=== PATIENT | female | born 1970 | race Caucasian/White ===

== ENCOUNTER 2016-09-20 12:08 | Emergency (ER) | payer MEDICAID ==
[2016-09-20] MEDS ORDERED: ACETAMINOPHEN 325 MG TAB PO ONE (12:29)
--- NOTE | 2016-09-20 12:41 | Emergency Department Record ---
History of Present Illness - General Chief Complaint: Fall Injury Stated Complaint: FALL Time Seen by Provider: 09/20/16 12:38 Source: Patient Mode of Arrival: EMS Limitations: No limitations - History of Present Illness Initial Comments: The patient is here from the [facility] home due to a fall. She was standing and lost her balance and fell backwards and landed on her buttocks. She did not hit her head or suffer a LOC and the fall was witnessed. After she did complain of L shoulder pain. She states she has a hx of a previous stroke and does loose her balance at times. She denies any CP, SOB, PAYTON, neck pain or any other injury. MD Complaint: Fall Onset/Timin -: Minutes(s) Fall From: Standing When Fall Occurred: Just prior to arrival Fall Witnessed: Yes, by bystander, Yes, by living facility staff Place Fall Occurred: Home Loss of Consciousness: None Prolonged Down Time?: No Symptoms Prior to Fall: None Severity: Moderate Severity scale (1-10): 8 Quality: Aching Associated Symptoms: Denies - Leeann Coma Scale Eye Response: (4) Open spontaneously Motor Response: (6) Obeys commands Verbal Response: (5) Oriented Leeann Total: 15 - Related Data Home Medications Medication Instructions Recorded Confirmed Last Taken Cholecalciferol (Vitamin D3) 5,000 unit PO WEEKLY 09/20/16 09/20/16 Unknown [Vitamin D3] Cyanocobalamin (Vitamin B-12) 1,000 mcg PO DAILY 09/20/16 09/20/16 Unknown [Vitamin B-12] Furosemide 40 mg PO DAILY 09/20/16 09/20/16 Unknown Gabapentin [Neurontin] 300 mg PO BID 09/20/16 09/20/16 Unknown Gabapentin [Neurontin] 600 mg PO TID 09/20/16 09/20/16 Unknown Hydrochlorothiazide 25 mg PO DAILY 09/20/16 09/20/16 Unknown Levetiracetam 500 mg PO BID 09/20/16 09/20/16 Unknown Levothyroxine Sodium [Synthroid] 50 mcg PO DAILY 09/20/16 09/20/16 Unknown Loxapine Succinate [Loxapine] 50 mg PO QHS 09/20/16 09/20/16 Unknown Omeprazole 20 mg PO DAILY 09/20/16 09/20/16 Unknown Paliperidone Palmitate [Invega 234 mg IM DAILY 09/20/16 09/20/16 Unknown Sustenna] Paliperidone [Paliperidone ER] 3 mg PO DAILY 09/20/16 09/20/16 Unknown Paliperidone [Paliperidone ER] 6 mg PO QHS 09/20/16 09/20/16 Unknown Potassium Chloride 10 meq PO DAILY 09/20/16 09/20/16 Unknown Topiramate [Topamax] 100 mg PO BID 09/20/16 09/20/16 Unknown Ziprasidone HCl [Geodon] 40 mg PO BID 09/20/16 09/20/16 Unknown Zolpidem Tartrate 10 mg PO QHS 09/20/16 09/20/16 Unknown Allergies Allergy/AdvReac Type Severity Reaction Status Date / Time codeine Allergy PT UNSURE Verified 09/20/16 12:27 OF REACTION Travel Screening - Travel/Exposure Within Last 30 Days Have you traveled within the last 30 days?: No Review of Systems Constitutional: Denies: Chills, Fever Eyes: Denies: Eye discharge ENT: Denies: Congestion Respiratory: Denies: Cough, Dyspnea Past Medical History - SOCIAL HISTORY Smoking Status: Current every day smoker Alcohol Use: None Drug Use: None - RESPIRATORY Hx Respiratory Disorders: No - CARDIOVASCULAR Hx Cardio Disorders: Yes Hx Hypertension: Yes - NEURO Hx Neuro Disorders: Yes Hx Seizures: Yes Comment:: TBI - GI Hx GI Disorders: Yes Hx Reflux: Yes - Hx Genitourinary Disorders: No - ENDOCRINE Hx Endocrine Disorders: No - MUSCULOSKELETAL Hx Musculoskeletal Disorders: No - PSYCH Hx Psych Problems: Yes Comment:: Bipolar - HEMATOLOGY/ONCOLOGY Hx Hematology/Oncology Disorders: No Family Medical History Any Significant Family History?: No Physical Exam - General General Appearance: Alert, Cooperative, No acute distress - Head Head exam: Atraumatic, Normocephalic, Normal inspection - Eye Eye exam: Normal appearance, PERRL Pupils: Normal accommodation - Neck Neck exam: Normal inspection, Full ROM. negative: Tenderness - Respiratory Respiratory exam: Normal lung sounds bilaterally. negative: Respiratory distress - Cardiovascular Cardiovascular Exam: Regular rate, Normal rhythm, Normal heart sounds - GI/Abdominal GI/Abdominal exam: Soft, Normal bowel sounds. negative: Tenderness - Extremities Extremities exam: Normal inspection, Full ROM (There is normal ROM for the patient taking into account the chronic L sided weakness from the CVA.), Tenderness (There is mild L anterior shoulder tenderness. ) Course Vital Signs 09/20/16 12:18 Temperature 97.5 F L Pulse Rate 84 Respiratory 20 Rate Blood Pressure 110/54 Pulse Ox 99 - Reevaluation(s) Reevaluation #1: The patient is doing better. She is now using her L arm normally and denies any pain or discomfort. Her main issue now is that she would like to go outside to smoke. I did explain to her that her xrays are neg and that she should use her walker at home. 09/20/16 13:01 Medical Decision Making - Data Complexity MDM Data: X-Ray Ordered and/or Reviewed - Radiology Data Radiology results: Report reviewed (L shoulder: Neg per rad.) Disposition Disposition: Discharge Clinical Impression: Shoulder pain, left Qualifiers: Chronicity: acute Qualified Code(s): M25.512 - Pain in left shoulder Disposition: Home, Self-Care Condition: (1) Good Instructions: Shoulder Sprain (ED) Additional Instructions: Please use Tylenol for pain and use your walker at all times. Please see your PCP if not better in 3 days. Return to the ER for any problems or new issues. Forms: Patient Portal Access Time of Disposition: 13:04
--- NOTE | 2016-09-21 10:08 | RADIOLOGY REPORT ---
EXAM: LEFT SHOULDER, THREE VIEWS HISTORY: FALL, LEFT SHOULDER PAIN. TECHNIQUE: Three views of the left shoulder were obtained. Comparison: None. FINDINGS: No bone or joint abnormality. IMPRESSION: NEGATIVE LEFT SHOULDER EXAMINATION. JOB NUMBER: [id number] [facility]
== END 2016-09-20 13:10 | disposition home or self-care (01) ==
LOC: ER 12:08
DX: G89.11 Acute pain due to trauma (principal); M25.512 Pain in left shoulder; W18.30XA Fall on same level, unspecified, initial encounter; Y92.099 Unspecified place in other non-institutional residence as the place of occurrence of the external cause
CPT/HCPCS: 99283

== ENCOUNTER 2016-10-05 16:43 | Inpatient (IN) | payer MEDICAID ==
--- NOTE | 2016-10-05 17:41 | Emergency Department Record ---
History of Present Illness - General Mode of Arrival: Ambulatory - History of Present Illness Initial Comments: fall two days ago and she is complaining of a headache and her caregiver states she is moving slower than she did 3 weeks ago the last time she saw her. 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 No chest or abdominal pain or leg pains with walking. Lives at [facility] home. No blood thinners on med list MD Complaint: Fall Onset/Timin -: Days(s) Fall From: Other When Fall Occurred: # Days [employer] [facility] Fall Occurred: Home Loss of Consciousness: Unsure Prolonged Down Time?: Unclear Symptoms Prior to Fall: Other Location: Head - Leeann Coma Scale Eye Response: (4) Open spontaneously Motor Response: (6) Obeys commands Verbal Response: (5) Oriented Leeann Total: 15 <Jose Eubanks - Last Filed: 10/05/16 17:36> <Sid Bernardo - Last Filed: 10/05/16 21:00> - General Chief Complaint: Fall Injury Stated Complaint: FALL INJURY/HEAD Time Seen by Provider: 10/05/16 17:30 - Related Data Home Medications Medication Instructions Recorded Confirmed Last Taken Cholecalciferol (Vitamin D3) 5,000 unit PO WEEKLY 09/20/16 10/05/16 10/05/16 [Vitamin D3] Cyanocobalamin (Vitamin B-12) 1,000 mcg PO DAILY 09/20/16 10/05/16 10/05/16 [Vitamin B-12] Furosemide 40 mg PO DAILY 09/20/16 10/05/16 10/05/16 Hydrochlorothiazide 25 mg PO DAILY 09/20/16 10/05/16 10/05/16 Levetiracetam 500 mg PO BID 09/20/16 10/05/16 10/05/16 Levothyroxine Sodium [Synthroid] 50 mcg PO DAILY 09/20/16 10/05/16 10/05/16 Omeprazole 20 mg PO DAILY 09/20/16 10/05/16 10/05/16 Paliperidone [Paliperidone ER] 3 mg PO DAILY 09/20/16 10/05/16 10/05/16 Paliperidone [Paliperidone ER] 6 mg PO QHS 09/20/16 10/05/1610/04/17 Potassium Chloride 10 meq PO DAILY 09/20/16 10/05/16 10/05/16 Topiramate [Topamax] 100 mg PO BID 09/20/16 10/05/16 10/05/16 Zolpidem Tartrate 10 mg PO QHS 09/20/16 10/05/16 10/04/16 Allergies Allergy/AdvReac Type Severity Reaction Status Date / Time codeine Allergy PT UNSURE Verified 09/20/16 12:27 OF REACTION Travel Screening - Travel/Exposure Within Last 30 Days Have you traveled within the last 30 days?: No - Travel/Exposure Within Last Year Have you traveled outside the [place] in the last year?: No - Additonal Travel Details Have you been exposed to anyone with a communicable illness?: No - Travel Symptoms Symptom Screening: None <Jose Eubanks - Last Filed: 10/05/16 17:36> Review of Systems Reviewed: No additional complaints except as noted below Constitutional: Reports: As per HPI. Denies: Chills, Fever, Malaise, Night sweats, Weakness, Weight change Eyes: Reports: As per HPI. Denies: Eye discharge, Eye pain, Photophobia, Vision change ENT: Reports: As per HPI. Denies: Congestion, Dental pain, Ear pain, Epistaxis , Hearing loss, Throat pain Respiratory: Reports: As per HPI. Denies: Cough, Dyspnea, Hemoptysis, Stridor, Wheezes Cardiovascular: Reports: As per HPI. Denies: Arrhythmia, Chest pain, Dyspnea on exertion, Edema, Murmurs, Orthopnea, Palpitations, Paroxysmal nocturnal dyspnea, Rheumatic Fever, Syncope Endocrine: Reports: As per HPI. Denies: Fatigue, Heat or cold intolerance, Polydipsia, Polyuria Gastrointestinal: Reports: As per HPI. Denies: Abdominal pain, Constipation, Diarrhea, Hematemesis, Hematochezia, Melena, Nausea, Vomiting Genitourinary: Reports: As per HPI. Denies: Abnormal menses, Discharge, Dyspareunia, Dysuria, Frequency, Hematuria, Incontinence, Retention, Urgency Musculoskeletal: Reports: As per HPI. Denies: Arthralgia, Back pain, Gout, Joint swelling, Myalgia, Neck pain Skin: Reports: As per HPI. Denies: Bruising, Change in color, Change in hair/ nails, Lesions, Pruritus, Rash Neurological: Reports: As per HPI, Headache. Denies: Abnormal gait, Confusion, Numbness, Paresthesias, Seizure, Tingling, Tremors, Vertigo, Weakness Psychiatric: Reports: As per HPI. Denies: Anxiety, Auditory hallucinations, Depression, Homicidal thoughts, Suicidal thoughts, Visual hallucinations Hematological/Lymphatic: Reports: As per HPI. Denies: Anemia, Blood Clots, Easy bleeding, Easy bruising, Swollen glands <Jose Eubanks Last Filed: 10/05/16 17:36> Past Medical History - SOCIAL HISTORY Smoking Status: Current every day smoker Alcohol Use: None Drug Use: None - RESPIRATORY Hx Respiratory Disorders: No - CARDIOVASCULAR Hx Cardio Disorders: Yes Hx Hypertension: Yes - NEURO Hx Neuro Disorders: Yes Hx CVA: Yes (2013) Hx Seizures: Yes Comment:: TBI - GI Hx GI Disorders: Yes Hx Reflux: Yes - Hx Genitourinary Disorders: No - ENDOCRINE Hx Endocrine Disorders: No - MUSCULOSKELETAL Hx Musculoskeletal Disorders: No - PSYCH Hx Psych Problems: Yes Hx Anxiety: Yes Hx Depression: Yes Comment:: Bipolar - HEMATOLOGY/ONCOLOGY Hx Hematology/Oncology Disorders: No <Jose Eubanks Last Filed: 10/05/16 17:36> Family Medical History Any Significant Family History?: No <Jose Eubanks Filed: 10/05/16 17:36> Physical Exam - General General Appearance: Alert, Cooperative, Mild distress - Head Head exam: Normal inspection - Eye Eye exam: Normal appearance, PERRL, EOMI Pupils: Normal accommodation - ENT ENT exam: Normal exam, Mucous membranes moist, Normal external ear exam, Normal orophraynx, TM's normal bilaterally Ear exam: Normal external inspection. negative: External canal tenderness Nasal Exam: Normal inspection. negative: Discharge, Sinus tenderness Mouth exam: Normal external inspection, Tongue normal Teeth exam: Normal inspection. negative: Dental caries Throat exam: Normal inspection. negative: Tonsillar erythema, Tonsillar exudate - Neck Neck exam: Normal inspection, Tenderness - Respiratory Respiratory exam: Normal lung sounds bilaterally. negative: Respiratory distress - Cardiovascular Cardiovascular Exam: Regular rate, Normal rhythm, Normal heart sounds - GI/Abdominal GI/Abdominal exam: Soft, Normal bowel sounds. negative: Tenderness - Rectal Rectal exam: Deferred - exam: Deferred - Extremities Extremities exam: Normal inspection, Full ROM, Normal capillary refill. negative: Tenderness - Back Back exam: Reports: Normal inspection, Full ROM. Denies: Muscle spasm, Rash noted, Tenderness - Neurological Neurological exam: Abnormal gait (walks with a walker), Alert, Reflexes normal, Other (left hand is paralysed with contractures of fingers) - Psychiatric Psychiatric exam: Normal affect, Normal mood - Skin Skin exam: Dry, Intact, Normal color, Warm <Jose Eubanks - Last Filed: 10/05/16 17:36> Course Vital Signs 10/05/16 17:00 Temperature 97.6 F Pulse Rate [ 61 Pulse Ox Probe] Respiratory 16 Rate Blood Pressure 99/61 [Right Arm] Pulse Ox 95 - Reevaluation(s) Reevaluation #1: care over to Dr. Bernardo at 7pmpatient going to CT scan. IV was difficult to start and blood drawn. 10/05/16 18:44 <Jose Eubanks - Last Filed: 10/05/16 17:36> Vital Signs 10/05/16 10/05/16 10/05/16 17:00 19:11 19:28 Temperature 97.6 F Pulse Rate [ 61 76 66 Pulse Ox Probe] Respiratory 16 16 16 Rate Blood Pressure 99/61 90/66 101/66 [Right Arm] Pulse Ox 95 95 100 - Reevaluation(s) Reevaluation #2: The patient is resting comfortably at this time. She denies any new issues or problems. We are waiting on the results of her CT and lab work. 10/05/16 19:40 Reevaluation #3: The patient is resting comfortably. I did discuss the issues with the patient and caregiver relating to her electrolyte problems and did recommend hospital admission which they agreed to. I also did discuss the case with Ammy CONCEPCION) and she does accept the admission for Dr. Long. 10/05/16 20:58 <Sid Bernardo - Last Filed: 10/05/16 21:00> Medical Decision Making - Lab Data Result diagrams: 10/05/16 18:21 10/05/16 18:30 <Jose Eubanks - Last Filed: 10/05/16 17:36> - Data Complexity MDM Data: Labs Ordered and/or Reviewed, X-Ray Ordered and/or Reviewed - Lab Data Result diagrams: 10/05/16 18:21 10/05/16 18:30 Lab Results 10/05/16 10/05/16 10/05/16 Range/Units 18:21 18:30 19:00 WBC 11.1 (4.2-12.2) K/uL RBC 4.95 (3.80-5.40) M/uL Hgb 14.3 (11.6-16.0) gm/dl Hct 40.2 (35.0-47.0) % MCV 81.2 (81-97) fl MCH 28.9 (27-33) pg MCHC 35.6 (32-36) g/dl RDW 14.7 H (11.5-14.5) % Plt Count 250 (130-400) K/uL MPV 10.4 (7.4-10.4) fl Gran % 75.9 (47-80) % Lymphocytes % 18.3 (16-45) % Monocytes % 5.7 (0-9) % Eosinophils % 0.0 (0-6) % Basophils % 0.1 (0-6) % PT 11.2 (9.5-12.1) SECONDS INR 0.99 APTT 23.70 L (24.5-39.1) SECONDS Urine Color Yellow Urine Appearance Clear Urine pH 7.0 (5.0-8.0) Ur Specific [place] 1.010 (1.002-1.030) Urine Protein Negative (NEGATIVE) Urine Glucose (UA) Negative (NEGATIVE) Urine Ketones Negative (NEGATIVE) Urine Blood Trace-i (NEGATIVE) Urine Nitrite Negative (NEGATIVE) Urine Bilirubin Negative (NEGATIVE) Urine Urobilinogen 0.2 (0.20 - 1.00) E.U./dL Ur Leukocyte Esterase Trace H (NEGATIVE) Urine RBC 0 - 2 (NONE SEEN) Urine WBC 0 - 2 (0-2/hpf) Ur Epithelial Cells 3 - 6 (FEW) Urine Bacteria None seen - Radiology Data Radiology results: Report reviewed (Head CT: No acute changes. Cervical Spine : No fx or dislocation. L supraclavicular nodes. Etiology ?) <Sid Bernardo - Last Filed: 10/05/16 21:00> Disposition <Jose Eubanks - Last Filed: 10/05/16 17:36> Disposition: Admit Decision to Admit: Admit from ER Decision to Admit Date: 10/05/16 Decision to Admit Time: 21:00 Accepting Physician: Mercedes Time Discussed w/Accepting Physician: 21:00 Time of Disposition: 21:00 <Sid Bernardo - Last Filed: 10/05/16 21:00> Clinical Impression: Hyponatremia syndrome Disposition: Still a Patient at [facility] Condition: (2) Stable Forms: Patient Portal Access
[2016-10-05] MEDS ORDERED: 0.9 % SODIUM CHLORIDE 1000ML 1,000 ML IV ONE (17:46)
[2016-10-05 18:22] LABS: BASO % 0.1 % (0-6); GRAN % 75.9 % (47-80); HEMATOCRIT 40.2 % (35.0-47.0); HEMOGLOBIN 14.3 gm/dl (11.6-16.0); LYMPH % 18.3 % (16-45); MEAN CELL VOLUME 81.2 fl (81-97); MEAN CORPUSCULAR HEMOGLOBIN 28.9 pg (27-33); MEAN CORPUSCULAR HGB CONC 35.6 g/dl (32-36); MEAN PLATELET VOLUME 10.4 fl (7.4-10.4); MONO % 5.7 % (0-9); PLATELET COUNT 250 K/uL (130-400); RED BLOOD COUNT 4.95 M/uL (3.80-5.40); RED CELL DISTRIBUTION WIDTH 14.7 % (11.5-14.5); WHITE BLOOD COUNT W/O DIFF 11.1 K/uL (4.2-12.2)
[2016-10-05 18:50] LABS: INR 0.99; PARTIAL THROMBOPLASTIN TIME 23.7 SECONDS (24.5-39.1); PROTHROMBIN TIME (PATIENT) 11.2 SECONDS (9.5-12.1)
[2016-10-05 19:08] LABS: URINE APPEARANCE CLEAR; URINE BILIRUBIN NEGATIVE (NEGATIVE); URINE BLOOD TRACE-I (NEGATIVE); URINE COLOR YELLOW; URINE GLUCOSE (UA) NEGATIVE (NEGATIVE); URINE KETONE NEGATIVE (NEGATIVE); URINE LEUKOCYTE ESTERASE TRACE (NEGATIVE); URINE NITRITE NEGATIVE (NEGATIVE); URINE PROTEIN NEGATIVE (NEGATIVE); URINE UROBILINOGEN 0.2 E.U./dL (0.20 - 1.00)
[2016-10-05 19:18] LABS: URINE BACTERIA NONE SEEN; URINE RBC 0 - 2 (NONE SEEN); URINE WBC 0 - 2 (0-2/hpf)
[2016-10-05 20:36] LABS: BLOOD UREA NITROGEN 46 mg/dL (7-17); EST GLOMERULAR FILTRATION RATE > 60 ml/min; GLUCOSE,RANDOM 145 mg/dL (70-110)
[2016-10-05 20:37] LABS: ACETAMINOPHEN < 10.0 ug/mL (10.0-30.0); SALICYLATE < 1.0 mg/dL (2.8-20.0)
[2016-10-05] MEDS ORDERED: POTASSIUM CHLORIDE 20 MEQ TABLET PO ONE ×2 (20:43→23:00)
[2016-10-05] MEDS ORDERED: SOD CHLOR 0.9% WITH KCL 40MEQ 40 MEQ/1,000 ML IV.SOLN IV ONE (20:43)
[2016-10-05] MEDS ORDERED: ACETAMINOPHEN 500 MG TABLET PO PRN (21:00)
[2016-10-05] MEDS ORDERED: 0.9 % SODIUM CHLORIDE 1000ML 1,000 ML IV PRN (21:00)
[2016-10-05] MEDS ORDERED: PALIPERIDONE 6 MG PO SCH (22:00)
[2016-10-05] MEDS ORDERED: Non-Formulary MISC (Zolpidem Tartrate [Zolpidem Tartrate] 10 MG) PO SCH (22:00)
[2016-10-05] MEDS: SOD CHLOR 0.9% WITH KCL 40MEQ 40 MEQ/1,000 ML IV.SOLN IV SCH (23:08)
[2016-10-05] MEDS: LEVETIRACETAM 500 MG TABLET PO SCH (23:08)
[2016-10-05] MEDS: TOPIRAMATE 100MG TABLET PO SCH (23:08)
[2016-10-05] MEDS: ZOLPIDEM TARTRATE 5 MG TABLET PO SCH (23:09)
[2016-10-06] MEDS ORDERED: LEVOTHYROXINE SODIUM 50 MCG TABLET PO SCH (06:00)
[2016-10-06] MEDS: PANTOPRAZOLE SODIUM 40 MG TABLET PO SCH (06:34)
[2016-10-06 06:48] LABS: BASO % 0.1 % (0-6); EOS % 0.4 % (0-6); GRAN % 61.9 % (47-80); HEMATOCRIT 36.1 % (35.0-47.0); HEMOGLOBIN 12.4 gm/dl (11.6-16.0); LYMPH % 30.5 % (16-45); MEAN CELL VOLUME 83.2 fl (81-97); MEAN CORPUSCULAR HEMOGLOBIN 28.6 pg (27-33); MEAN CORPUSCULAR HGB CONC 34.3 g/dl (32-36); MONO % 7.1 % (0-9); PLATELET COUNT 224 K/uL (130-400); RED BLOOD COUNT 4.34 M/uL (3.80-5.40); RED CELL DISTRIBUTION WIDTH 14.5 % (11.5-14.5); WHITE BLOOD COUNT W/O DIFF 7.1 K/uL (4.2-12.2)
--- NOTE | 2016-10-06 06:50 | History & Physical ---
History of Present Illness - Date of Service Date of Service for History & Physical: 10/06/16 - History of Present Illness Admitting Diagnosis: 1. Acute Hyponatremia and Hypokalemia History of Present Illness: 46yo female with CC of headache. She has history of CVA in 2013 with residual Left sided weakness and contracture of the left upper extremity, TBI, schizoaffective disorder, HTN, GERD, and is a current smoker. Patient was brought from [facility], which is an [facility], after falling two days ago. She complained of headache and it was noted she was moving more slowly than usual so she was brought to the ED. While in the ED, patient had CT scan of the Cspine and head which were negative for acute fracture or changes. noted to have some enlarged supraclavicular nodes of uncertain etiology on cspine. UA showed trace leuk esterase, CBC, PT/ INR, and tox screen for salicylates and acetaminophen were unremarkable. Her CMP however, showed significant electrolyte abnormalities. sodium was 119, potassium was 2.4, chloride of 70, and bicarb of 38. BUN was elevated at 46 with a normal Cr of 1.0. Patient received oral potassium supplementation and was started on IV NS. her Lasix and HCTZ were held and she was admitted for electrolyte abnormalities. 10/06/16- patient is poor historian. She is oriented to person but not to place or time. unfortunately, there are no caretakers or family at bedside. Patient is able to verbalize that she has some pain in the back of head from the fall, but does not answer any of my other questions. PCP: previously with visiting physicians and now transferring to [facility] psychiatry follows with patient Travel Screening - Travel/Exposure Within Last 30 Days Have you traveled within the last 30 days?: No - Travel/Exposure Within Last Year Have you traveled outside the [place] in the last year?: No - Additonal Travel Details Have you been exposed to anyone with a communicable illness?: No - Travel Symptoms Symptom Screening: None Review of Systems ROS unobtainable: Due to mental status Constitutional: Reports: As per HPI. Denies: Chills, Fever, Malaise, Night sweats, Weakness, Weight change Eyes: Reports: As per HPI. Denies: Eye discharge, Eye pain, Photophobia, Vision change ENT: Reports: As per HPI. Denies: Congestion, Dental pain, Ear pain, Epistaxis , Hearing loss, Throat pain Respiratory: Reports: As per HPI. Denies: Cough, Dyspnea, Hemoptysis, Stridor, Wheezes Cardiovascular: Reports: As per HPI. Denies: Arrhythmia, Chest pain, Dyspnea on exertion, Edema, Murmurs, Orthopnea, Palpitations, Paroxysmal nocturnal dyspnea, Rheumatic Fever, Syncope Endocrine: Reports: As per HPI. Denies: Fatigue, Heat or cold intolerance, Polydipsia, Polyuria Gastrointestinal: Reports: As per HPI. Denies: Abdominal pain, Constipation, Diarrhea, Hematemesis, Hematochezia, Melena, Nausea, Vomiting Genitourinary: Reports: As per HPI. Denies: Abnormal menses, Discharge, Dyspareunia, Dysuria, Frequency, Hematuria, Incontinence, Retention, Urgency Musculoskeletal: Reports: As per HPI. Denies: Arthralgia, Back pain, Gout, Joint swelling, Myalgia, Neck pain Skin: Reports: As per HPI. Denies: Bruising, Change in color, Change in hair/ nails, Lesions, Pruritus, Rash Neurological: Reports: As per HPI, Headache. Denies: Abnormal gait, Confusion, Numbness, Paresthesias, Seizure, Tingling, Tremors, Vertigo, Weakness Psychiatric: Reports: As per HPI. Denies: Anxiety, Auditory hallucinations, Depression, Homicidal thoughts, Suicidal thoughts, Visual hallucinations Hematological/Lymphatic: Reports: As per HPI. Denies: Anemia, Blood Clots, Easy bleeding, Easy bruising, Swollen glands Past Medical History - SOCIAL HISTORY Smoking Status: Current every day smoker Alcohol Use: None Drug Use: None - RESPIRATORY Hx Respiratory Disorders: No - CARDIOVASCULAR Hx Cardio Disorders: Yes Hx Hypertension: Yes - NEURO Hx Neuro Disorders: Yes Hx CVA: Yes (2013) Hx Seizures: Yes Comment:: TBI - GI Hx GI Disorders: Yes Hx Reflux: Yes - Hx Genitourinary Disorders: No - ENDOCRINE Hx Endocrine Disorders: No - MUSCULOSKELETAL Hx Musculoskeletal Disorders: No - PSYCH Hx Psych Problems: Yes Hx Anxiety: Yes Hx Depression: Yes Comment:: Bipolar - HEMATOLOGY/ONCOLOGY Hx Hematology/Oncology Disorders: No Family Medical History Any Significant Family History?: No H&P Meds/Allergies - Allergies Allergies: Allergies Allergy/AdvReac Type Severity Reaction Status Date / Time codeine Allergy PT UNSURE Verified 09/20/16 12:27 OF REACTION - Home Medications Home Medications Medication Instructions Recorded Confirmed Last Taken Cholecalciferol (Vitamin D3) 5,000 unit PO WEEKLY 09/20/16 10/05/16 10/05/16 [Vitamin D3] Cyanocobalamin (Vitamin B-12) 1,000 mcg PO DAILY 09/20/16 10/05/16 10/05/16 [Vitamin B-12] Furosemide 40 mg PO DAILY 09/20/16 10/05/16 10/05/16 Hydrochlorothiazide 25 mg PO DAILY 09/20/16 10/05/16 10/05/16 Levetiracetam 500 mg PO BID 09/20/16 10/05/16 10/05/16 Levothyroxine Sodium [Synthroid] 50 mcg PO DAILY 09/20/16 10/05/16 10/05/16 Omeprazole 20 mg PO DAILY 09/20/16 10/05/16 10/05/16 Paliperidone [Paliperidone ER] 3 mg PO DAILY 09/20/16 10/05/16 10/05/16 Paliperidone [Paliperidone ER] 6 mg PO QHS 09/20/16 10/05/16 10/04/16 Potassium Chloride 10 meq PO DAILY 09/20/16 10/05/16 10/05/16 Topiramate [Topamax] 100 mg PO BID 09/20/16 10/05/16 10/05/16 Zolpidem Tartrate 10 mg PO QHS 09/20/16 10/05/16 10/04/16 - Active Medications Active Medications: Current Medications Acetaminophen (Tylenol 500mg Tab) 500 mg PO Q6H PRN PRN Reason: PAIN/TEMP Sodium Chloride () 1,000 mls @ 100 mls/hr IV .Q10H PRN PRN Reason: LARGE VOLUME IV Potassium Chloride/Sodium Chloride (Potassium Chl 40meq/) 40 meq in 1,000 mls @ 100 mls/hr IV Q10H [facility] Last Admin: 10/05/16 23:08 Dose: Not Given Levetiracetam (Keppra) 500 mg PO BID [facility] Last Admin: 10/05/16 23:08 Dose: 500 mg Levothyroxine Sodium (Synthroid) 50 mcg PO [id number] [facility] Last Admin: 10/06/16 06:34 Dose: 50 mcg Non-Formulary Medication (Paliperidone [Paliperidone Er]) 3 mg PO DAILY [facility] Non-Formulary Medication (Paliperidone [Paliperidone Er]) 6 mg PO QHS [facility] Pantoprazole Sodium (Protonix) 40 mg PO DAILYAC [facility] Last Admin: 10/06/16 06:34 Dose: 40 mg Topiramate (Topiramate) 100 mg PO BID [facility] Last Admin: 10/05/16 23:08 Dose: 100 mg Zolpidem Tartrate (Ambien) 10 mg PO QHS [facility] Last Admin: 10/05/16 23:09 Dose: 10 mg Physical Exam - Vital Signs Vital Signs: Vital Signs - Last 24 Hrs Temp Pulse Resp BP Pulse Ox 10/06/16 02:47 98.3 F 65 14 129/77 98 10/05/16 22:00 97.7 F 65 16 121/73 99 - General General Appearance: Alert, Cooperative, No acute distress Limitations: Altered mental status - Head Head exam: Normal inspection - Eye Eye exam: Normal appearance, PERRL, EOMI Pupils: Normal accommodation - ENT ENT exam: Normal exam, Mucous membranes moist, Normal external ear exam, Normal orophraynx, TM's normal bilaterally Ear exam: Normal external inspection. negative: External canal tenderness Nasal Exam: Normal inspection. negative: Discharge, Sinus tenderness Mouth exam: Normal external inspection, Tongue normal Teeth exam: Normal inspection. negative: Dental caries Throat exam: Normal inspection. negative: Tonsillar erythema, Tonsillar exudate - Neck Neck exam: Normal inspection, Tenderness - Respiratory Respiratory exam: Normal lung sounds bilaterally. negative: Respiratory distress - Cardiovascular Cardiovascular Exam: Regular rate, Normal rhythm, Normal heart sounds - GI/Abdominal GI/Abdominal exam: Soft, Normal bowel sounds. negative: Tenderness - Rectal Rectal exam: Deferred - exam: Deferred - Extremities Extremities exam: Normal inspection, Full ROM, Normal capillary refill. negative: Tenderness - Back Back exam: Reports: Normal inspection, Full ROM. Denies: Muscle spasm, Rash noted, Tenderness - Neurological Neurological exam: Abnormal gait (walks with a walker), Alert, Reflexes normal, Other (left hand is paralysed with contractures of fingers) - Psychiatric Psychiatric exam: Agitated - Skin Skin exam: Dry, Intact, Normal color, Warm Results - Labs Result Diagrams: 10/06/16 06:33 10/06/16 06:33 - Imaging and Cardiology CT scan - head Status: Report reviewed (negative) cspine CT Status: Report reviewed (negative) VTE H&P Assessment - Risk for VTE Risk for VTE: Yes Risk Level: Moderate Risk Assessment Date: 10/06/16 Risk Assessment Time: 06:57 VTE Orders Placed or Will Be Placed: Yes Plan - Inpatient Certification Inpatient Certification: Admit to inpatient care: Based on my medical assessment, after consideration of patient's risk factors (age, co-morbidities and patient presenting symptoms and acuity), I expect that this patient will remain in the hospital greater than or equal to two midnights and that the services needed warrant inpatient care because: Patient Risk Factors: [age, significant electrolyte abnormalities, history of CVA and seizures] Estimated length of stay: [48-72] The patient may reasonably be expected to be discharged or transferred to a hospital within 96 hours after admission to [facility]. Services needed: [IVF with electrolyte rescuscitation] Post hospital care (if known): [[facility]] I certify that my determination is in accordance with my understanding of Medicare requirements for reasonable and necessary inpatient services. 10/06/16 06:57 - Detailed Diagnosis and Plan (1) Electrolyte abnormality Current Visit: Yes Status: Acute Base Code: E87.8 - OTH DISORDERS OF ELECTROLYTE AND FLUID BALANCE, NEC Comment: 10/06/16-improved. Sodium up to 125 from 119. potassium up to 2.9 from 2.4. choride up to 83 from 70. bicarb down from 34 to 31.4. likely secondary to excessive diuretic use with lasix 40mg and HCTZ 25mg daily. Patient recently moved AF and concern there was not appropriate medication reconciliation. -hold diuretics -continue electrolyte replacement with IV NS with 40meq of potassium in each liter at 100cc/hr. -request records from [facility] and previous physician. glucose was elevated and A1C is in the diabetic range. not sure patient has previously been diagnosed with no diabetic agents on board. will orer ADA diet. -vitals q8H -repeat labs qam -continue cardiac monitoring. (2) Frequent falls Current Visit: Yes Status: Acute Base Code: R29.6 - REPEATED FALLS Comment : 10/06/16- Patient experiencing frequent falls over the past few months. currently living in an [facility]. Has residual weakness primarily in the left side following CVA in 2013. Head CT and Cspine showed no acute changes following fall 2 days ago. -hold diuretics and correct electrolyte imbalance -consult PT/OT (3) Full code status Current Visit: Yes Status: Acute Base Code: Z78.9 - OTHER SPECIFIED HEALTH STATUS Comment: 10/06/16- patient is full code (4) DVT prophylaxis Current Visit: Yes Status: Acute Base Code: [id number] - Comment: 10/06/16- patient is moderate risk with age and restricted mobility -will order lovenox 40mg sq daily but suspect patient will refuse -will encourage ambulation wt PT
[2016-10-06 07:03] LABS: ANION GAP 10.6 (7-16); BLOOD UREA NITROGEN 32 mg/dL (7-17); CARBON DIOXIDE 31.4 mmol/L (22-30); EST GLOMERULAR FILTRATION RATE > 60 ml/min; GLUCOSE,RANDOM 236 mg/dL (70-110)
[2016-10-06] MEDS: SOD CHLOR 0.9% WITH KCL 40MEQ 40 MEQ/1,000 ML IV.SOLN IV SCH ×3 (07:19→20:37)
[2016-10-06] MEDS ORDERED: Non-Formulary MISC (Omeprazole [Omeprazole] 20 MG) PO SCH (10:00)
[2016-10-06] MEDS ORDERED: PALIPERIDONE 3 MG PO SCH ×2 (10:00)
[2016-10-06] MEDS: LEVETIRACETAM 500 MG TABLET PO SCH ×2 (10:42→21:04)
[2016-10-06] MEDS: TOPIRAMATE 100MG TABLET PO SCH ×2 (10:43→21:05)
--- NOTE | 2016-10-06 15:11 | Rehab Evaluation ---
Patient Information - Patient Information Diagnosis: Acute hyponatremia and hypokalemia Ordered Treatment: PT Evaluate and Treat Status: Initial Evaluation Surgery: No History: Detail (Pt was admitted from ED after presentation 10/05/16, reporting having fallen at home two days ago, hitting her head; she was reported to be moving and speaking slower than she usually does.) Past Med/Yana Hx Detail: Detail Past Medical/Surgical Hx: PAST MEDICAL/SURGICAL HISTORY Past Surgical History TBI PMH - Respiratory Hx Respiratory Disorders No PMH - Cardiovascular Hx Cardiovascular Disorders Yes Hx Hypertension Yes PMH - Neuro Hx Neurological Disorders Yes Hx Cerebrovascular Accident Yes: 2013 Hx Seizures Yes Comment: TBI PMH - GI Hx Gastrointestinal Disorders Yes Hx Gastroesophageal Reflux Yes PMH - Hx Genitourinary Disorders No PMH - Endocrine Hx Endocrine Disorders No PMH - Musculoskeletal Hx Musculoskeletal Disorders No PMH - Psych Hx Psychiatric Problems Yes Hx Anxiety Yes Hx Depression Yes Comment: Bipolar PMH - Hematology/Oncology Hx Hematology/Oncology No Disorders Premorbid Status: Detail (From records review, pt lives at a long-term for residents w/mental health issues. She is not a good historian, but reports that she was independent w/bathing, dressing, eating, and other self care. She is unable to tell me if she has fallen more than the reported fall two days ago , in the past six months. She ambulates w/four wheeled walker.) Social History: Detail (Unable to ascertain from interaction w/patient.) - Time With Patient Total Time Spent With Patient (Min): 45 Treatment Procedures: Detail (PT evaluation) Subjective Information - Subjective Information Per Patient (Pt reports head pain, "10+/10" at rest; acknowledges that she's been given pain meds and "they're not working". Cooperative for physical therapy evaluation.) Objective Data - Pain Pain Present: Yes Pain Intensity: 10 (head pain) Pain Scale Used: Numeric (1 - 10) - Mental Status Patient Orientation: Person, Place (Pt did not respond to questions of time orientation. She could identify herself and this location.) - Visual Perception Appears within normal limits for therapeutic activities (States vision is blurry ; L eyelid is droopy.) - ROM Not within normal limits (L wrist/finger flexion contractures; patient is able to open adequately to shade classifier walker handle. L ankle plantarflexion contracture of at least 10+ degrees; says "OW" when attempted stretching but unable to localize.) - Strength/Tone Not within normal limits (WNL at B shoulders, elbows, hips, knees; unable to fully test ankles as pt was not cooperative (not sure whether she didn't understand the directions or if she couldn't physically do the motions).) - Coordination Deficit (Impaired movement of L extremities, mostly distally.) - Bed Mobility Independent - Transfers Needs Assist (CGA for sit/stand at bedside; verbalized discomfort standing w/o her walker, requested it and she was able to stand w/it w/o difficulty.) - Balance Balance Sitting: Good Balance Standing: Good (Good balance standing w/four wheeled walker, poor without assist. Pt verbalized discomfort standing without UE support. Unable to fully assess dynamic balance due to patient's cooperation.) - Sensation Deficit (Pt reports numbness/tingling in her feet, but unable to formally assess.) - Gait Detail (Ambulated w/four wheeled walker from bedside, around bed, out of room to hallway, to next patient room and back to bedside (about 50 feet) w/CGA. Stiff gait, short strides, mild forward lean w/walker.) Therapy Assessment - Therapy Assessment Detail (Pt exhibits physical independence with bed mobility and transfers, supervision w/gait, good upper and lower extremity strength. Safety may be somewhat compromised more by psychological issues than physical, from a therapy perspective. Her four wheeled walker is in need of repair to the right front wheel for stability, or replacement. She does not have physical therapy needs at this time.) Problem List - Problem List Physical Therapy Problem List: Detail (None) Goals - Goals Physical Therapy Goals: 1. Ensure that caregiver/facility is aware of need for repair to right front wheel of walker, or replacement if unable to be repaired. Prognosis - Prognosis Moderate Plan - Plan Physical Therapy Plan: Will check in w/patient and nrsg during stay to monitor for any further physical therapy needs.
[2016-10-06] MEDS: ZOLPIDEM TARTRATE 5 MG TABLET PO SCH (21:04)
[2016-10-06] MEDS ORDERED: PALIPERIDONE 6 MG PO SCH (22:00)
[2016-10-06] MEDS ORDERED: LORAZEPAM 2 MG/ML VIAL IV PRN (22:41)
--- NOTE | 2016-10-07 01:02 | CT SCAN REPORT ---
EXAM: CT SCAN HEAD WO CONTRAST HISTORY: PATIENT HAS A HISTORY OF FALL AND HITTING HER HEAD TWO DAYS AGO. TECHNIQUE: Serial axial CT scan of the head was performed at 2.5 mm intervals from the base of the skull to the apex without the use of intravenous contrast. COMPARISON: No comparison CTs are available. Sagittal and coronal reconstructed images are provided. FINDINGS: The ventricles, cisterns, sulci appear within normal limits for size , shape, and attenuation. There is no mass or mass effect. The waters and white differentiation appear within normal limits. There is no CT evidence of intra or extraaxial fluid collection to suggest bleeding. Bone windows demonstrate no CT evidence of a fracture or dislocation of the skull. Paranasal sinuses are unremarkable. IMPRESSION: NO CT EVIDENCE OF AN ACUTE INTRACRANIAL PROCESS. JOB NUMBER: [id number] MTDD
--- NOTE | 2016-10-07 01:12 | CT SCAN REPORT ---
EXAM: CT SCAN CERVICAL SPINE WO CONTRAST HISTORY: PATIENT HAS A HISTORY OF FALL. TECHNIQUE: Serial axial CT scan of the cervical spine is performed at 2.5 mm intervals from the base of the skull to the thoracic inlet without the use of intravenous contrast. Sagittal and coronal reconstructions are provided. COMPARISON: No comparison CTs are available. FINDINGS: The vertebral body height, contour, AP alignment of the cervical spine is within normal limits. Mild anterior vertebral body osteophytes are identified at the C4-C5 disc space levels. There is mild reversal of normal lordosis of the cervical spine, which is likely related to the cervical collar. There is no CT evidence of a fracture or dislocation of the cervical spine. Prevertebral soft tissue demonstrates retropharyngeal deviation of the bilateral common carotid arteries. Otherwise, the prevertebral soft tissue is unremarkable. Parapharyngeal fat is unremarkable. Bilateral visualized parotid glands, submandibular glands, and thyroid gland are unremarkable. There is no CT evidence of cervical lymphadenopathy, however, several subcentimeter lymph nodes are identified within the left supraclavicular region. These findings may be reactive. Clinical correlation is recommended. Airways are patent. Visualized upper lung boothe are unremarkable. IMPRESSION: 1. MINIMAL DEGENERATIVE CHANGE OF THE CERVICAL SPINE ARE NOTED WITHOUT CT EVIDENCE OF AN ACUTE PROCESS INVOLVING THE CERVICAL SPINE. 2. SEVERAL SUBCENTIMETER LYMPH NODES ARE IDENTIFIED WITHIN THE LEFT SUPRACLAVICULAR REGION. THESE MAY BE REACTIVE. CLINICAL CORRELATION IS RECOMMENDED. JOB NUMBER: [id number] [facility]
[2016-10-07] MEDS: PANTOPRAZOLE SODIUM 40 MG TABLET PO SCH (06:20)
[2016-10-07] MEDS: SOD CHLOR 0.9% WITH KCL 40MEQ 40 MEQ/1,000 ML IV.SOLN IV SCH (06:38)
[2016-10-07 06:51] LABS: BASO % 0.3 % (0-6); EOS % 0.7 % (0-6); GRAN % 50.1 % (47-80); HEMATOCRIT 37.1 % (35.0-47.0); HEMOGLOBIN 12.3 gm/dl (11.6-16.0); LYMPH % 41.6 % (16-45); MEAN CELL VOLUME 86.3 fl (81-97); MEAN CORPUSCULAR HEMOGLOBIN 28.6 pg (27-33); MEAN CORPUSCULAR HGB CONC 33.2 g/dl (32-36); MEAN PLATELET VOLUME 10.8 fl (7.4-10.4); MONO % 7.3 % (0-9); PLATELET COUNT 208 K/uL (130-400); RED CELL DISTRIBUTION WIDTH 14.9 % (11.5-14.5); WHITE BLOOD COUNT W/O DIFF 6.9 K/uL (4.2-12.2)
[2016-10-07] MEDS ORDERED: LEVOTHYROXINE SODIUM 50 MCG TABLET PO SCH (07:00)
[2016-10-07 07:05] LABS: ALB/GLOB RATIO 1.2 (1.1-1.8); ALBUMIN 3.4 gm/dL (3.5-5.0); ALKALINE PHOSPHATASE 100 U/L (38-126); ALT/SGPT 20 U/L (9-52); ANION GAP 5.9 (7-16); AST/SGOT 15 U/L (14-36); BILIRUBIN,TOTAL 0.38 mg/dL (0.2-1.3); BLOOD UREA NITROGEN 17 mg/dL (7-17); CARBON DIOXIDE 26.1 mmol/L (22-30); CREATININE 0.7 mg/dL (0.52-1.04); EST GLOMERULAR FILTRATION RATE > 60 ml/min; GLUCOSE,RANDOM 156 mg/dL (70-110); TOTAL PROTEIN 6.3 gm/dL (6.3-8.2)
--- NOTE | 2016-10-07 09:54 | Discharge Summary ---
Providers Discharge Summary Date: 10/07/16 Date of admission: 10/05/16 21:53 Expected Date of Discharge: 10/07/16 Attending physician: BHARGAV CARRERA Physical Exam - Vital Signs Vital Signs: Vital Signs - Last 24 Hrs Temp Pulse Resp BP Pulse Ox 10/06/16 20:00 97.8 F 118 H 18 129/83 95 10/06/16 17:22 97.7 F 60 16 90/62 99 10/06/16 11:00 97.4 F L 63 16 89/51 - General General Appearance: Alert, Cooperative, No acute distress Limitations: Altered mental status - Head Head exam: Normal inspection - Eye Eye exam: Normal appearance, PERRL, EOMI Pupils: Normal accommodation - ENT ENT exam: Normal exam, Mucous membranes moist, Normal external ear exam, Normal orophraynx, TM's normal bilaterally Ear exam: Normal external inspection. negative: External canal tenderness Nasal Exam: Normal inspection. negative: Discharge, Sinus tenderness Mouth exam: Normal external inspection, Tongue normal Teeth exam: Normal inspection. negative: Dental caries Throat exam: Normal inspection. negative: Tonsillar erythema, Tonsillar exudate - Neck Neck exam: Normal inspection, Tenderness - Respiratory Respiratory exam: Normal lung sounds bilaterally. negative: Respiratory distress - Cardiovascular Cardiovascular Exam: Regular rate, Normal rhythm, Normal heart sounds - GI/Abdominal GI/Abdominal exam: Soft, Normal bowel sounds. negative: Tenderness - Rectal Rectal exam: Deferred - exam: Deferred - Extremities Extremities exam: Normal inspection, Full ROM, Normal capillary refill. negative: Tenderness - Back Back exam: Reports: Normal inspection, Full ROM. Denies: Muscle spasm, Rash noted, Tenderness - Neurological Neurological exam: Abnormal gait (walks with a walker), Alert, Reflexes normal, Other (left hand is paralysed with contractures of fingers) - Psychiatric Psychiatric exam: Agitated - Skin Skin exam: Dry, Intact, Normal color, Warm Hospitalization - Hospitalization Admission Diagnosis: 1. Acute Hyponatremia and Hypokalemia - Problem List/Discharge Diagnosis (1) Electrolyte abnormality Current Visit: Yes Status: Acute Base Code: E87.8 - OTH DISORDERS OF ELECTROLYTE AND FLUID BALANCE, NEC Comment: 10/07/16-resolving. Sodium up to 131 from 119. potassium up to 3.4 from 2.4. choride up to 99 from 70. bicarb down from 34 to 26.1. likely secondary to excessive diuretic use with lasix 40mg and HCTZ 25mg daily. suspect electrolytes will continue to normalize with continued discontinuation of diuretics. -will plan to discharge home to [facility] today. Will ensure they have an appointment with a primary care physican scheduled. Discussed the importance of close follow up to monitor her blood glucose, blood pressure, and fluid status since discontinuing the diuretics. I have given an outpatient lab slip to have CMP repeated prior to her PCP follow up appointment. -records from [facility] available. no history of CHF documented. medication list reconciled. patient is following with Dr. Villagran psychiatry at [facility] and is getting invegga sustenna once monthly. -glucose was elevated and A1C is in the diabetic range. not sure patient has previously been diagnosed with no diabetic agents on board. Patient states she has been told she had diabetes. A1C is less than 7. will request that she remains on ADA diet while at [facility] and follow up closely with pcp. -no records from previous PCP. patient is scheduled to have appointment with new pcp today. Not sure indication for her lasix but will encourage close follow up with new pcp to evaluate fluid status. (2) Frequent falls Current Visit: Yes Status: Acute Base Code: R29.6 - REPEATED FALLS Comment : 10/07/16- Has residual weakness primarily in the left side following CVA in 2013. Head CT and Cspine showed no acute changes following fall 2 days ago. PT evalulated patient. Finds she is independent with ambulation. They do recommend a new walker as hers has a broken wheel. Makenzie, social work, has contacted [facility] to make them aware. (3) Full code status Current Visit: Yes Status: Acute Base Code: Z78.9 - OTHER SPECIFIED HEALTH STATUS Comment: 10/07/16- patient is full code (4) DVT prophylaxis Current Visit: Yes Status: Acute Base Code: [id number] - Comment: 10/07/16- patient is moderate risk with age and restricted mobility -lovenox 40mg sq given daily - Hospitalization Course Disposition: [facility] Hospital Course: 46yo female with CC of headache. She has history of CVA in 2013 with residual Left sided weakness and contracture of the left upper extremity, TBI, schizoaffective disorder, HTN, GERD, and is a current smoker. Patient was brought from [facility], which is an [facility], after falling two days ago. She complained of headache and it was noted she was moving more slowly than usual so she was brought to the ED. While in the ED, patient had CT scan of the Cspine and head which were negative for acute fracture or changes. noted to have some enlarged supraclavicular nodes of uncertain etiology on cspine. UA showed trace leuk esterase, CBC, PT/ INR, and tox screen for salicylates and acetaminophen were unremarkable. Her CMP however, showed significant electrolyte abnormalities. sodium was 119, potassium was 2.4, chloride of 70, and bicarb of 38. BUN was elevated at 46 with a normal Cr of 1.0. Patient received oral potassium supplementation and was started on IV NS. her Lasix and HCTZ were held and she was admitted for electrolyte abnormalities. 10/06/16- patient is poor historian. She is oriented to person but not to place or time. unfortunately, there are no caretakers or family at bedside. Patient is able to verbalize that she has some pain in the back of head from the fall, but does not answer any of my other questions. 10/07/16-Patient able to speak but remains mostly incoherent. per [facility] this is her baseline. She does still have some headache, but no other pain. She states she thinks she is diabetic because that's why no one will let her eat oranges. She becomes tearful about this. PCP: used have visiting physicians but is transferring to [facility] within [facility] Abnormal Labs: Abnormal Lab Results 10/06/16 10/06/16 10/06/16 Range/Units 06:10 06:10 06:33 RDW (11.5-14.5) % MPV 11.0 H (7.4-10.4) fl Sodium (136-145) mmol/L Potassium (3.5-5.1) mmol/L Chloride (98-107) mmol/L Carbon Dioxide (22-30) mmol/L Anion Gap (7-16) BUN (7-17) mg/dL Random Glucose (70-110) mg/dL Hemoglobin A1c 6.72 H (4.80-6.00) % Magnesium 2.5 H (1.6-2.3) mg/dL Albumin (3.5-5.0) gm/dL 10/06/16 10/07/16 10/07/16 Range/Units 06:33 06:22 06:22 RDW 14.9 H (11.5-14.5) % MPV 10.8 H (7.4-10.4) fl Sodium 125 L 131 L (136-145) mmol/L Potassium 2.9 L 3.4 L (3.5-5.1) mmol/L Chloride 83 L (98-107) mmol/L Carbon Dioxide 31.4 H (22-30) mmol/L Anion Gap 5.9 L (7-16) BUN 32 H (7-17) mg/dL Random Glucose 236 H 156 H (70-110) mg/dL Hemoglobin A1c (4.80-6.00) % Magnesium (1.6-2.3) mg/dL Albumin 3.4 L (3.5-5.0) gm/dL Condition at Discharge: (2) Stable Discharge Medications - Discharge Medications Prescriptions: Paliperidone Palmitate [Invega Sustenna] 156 mg IM MONTHLY #1 ml Home Medications: Ambulatory Orders Cholecalciferol (Vitamin D3) [Vitamin D3] 5,000 unit PO WEEKLY 09/20/16 [Last Taken 10/05/16] Cyanocobalamin (Vitamin B-12) [Vitamin B-12] 1,000 mcg PO DAILY 09/20/16 [Last Taken 10/05/16] Levetiracetam 500 mg PO BID 09/20/16 [Last Taken 10/05/16] Levothyroxine Sodium [Synthroid] 50 mcg PO DAILY 09/20/16 [Last Taken 10/05/16] Omeprazole 20 mg PO DAILY 09/20/16 [Last Taken 10/05/16] Zolpidem Tartrate 10 mg PO QHS 09/20/16 [Last Taken 10/04/16] Paliperidone Palmitate [Invega Sustenna] 156 mg IM MONTHLY #1 ml 10/07/16 [Last Taken Unknown] Topiramate [Topamax] 100 mg PO QHS #0 10/07/16 [Last Taken 10/05/16] Discharge Plan - Discharge Instructions Activity at Discharge: As Per Physical Therapy Diet at Discharge: Diabetic Diet Additional Instructions: Please schedule patient a follow up appointment with a Primary Care Provider in the next 5-7 days. Patient has been diagnosed with diabetes during this inpatient stay and will need close follow up with a primary care physician. She is also having her diuretics discontinued so will need follow up with a primary care to monitor her blood pressure and electrolytes. I have given an outpatient lab order to have blood work repeated prior to her PCP follow up appointment. Patient will also need to be placed on a diabetic diet. Discontinue lasix discontinue HCTZ discontinue the potassium 10meq daily Please call with any questions or concerns in the interim Return to ED for any new or worsening symptoms.
[2016-10-07] MEDS: LEVETIRACETAM 500 MG TABLET PO SCH (10:30)
== END 2016-10-07 12:00 | DRG 641 ==
LOC: ER 16:43 → MEDSURG 21:53
PROVIDERS: ADMIT Family Medicine; ATTEND Family Medicine
DX: E87.1 Hypo-osmolality and hyponatremia (principal); E87.6 Hypokalemia; I69.898 Other sequelae of other cerebrovascular disease; I69.839 Monoplegia of upper limb following other cerebrovascular disease affecting unspecified side; I10 Essential (primary) hypertension; F25.9 Schizoaffective disorder, unspecified; F17.210 Nicotine dependence, cigarettes, uncomplicated; Z78.9 Other specified health status; R29.6 Repeated falls; E11.9 Type 2 diabetes mellitus without complications
CPT/HCPCS: 70450; 72125; 80048; 80053; 80329; 81001; 83036; 83735; 85025; 85610; 85730; 93005; 93010; 96374; 99223; 99239; 99285

== ENCOUNTER 2017-02-07 06:17 | Emergency (ER) | payer MEDICAID ==
--- NOTE | 2017-02-07 06:38 | Emergency Department Record ---
History of Present Illness - General Chief Complaint: Chest Pain Stated Complaint: CHEST PRESSURE Source: Patient Mode of Arrival: EMS Limitations: No limitations - History of Present Illness Initial Comments: 46 yo female presents to ED for evaluation of chest pain symptoms after smoking a cigarette outside this morning. Patient denies history of symptoms previously , denies fevers, chills, or recent illness. Patient denies history of heart or lung problems on examination. Patient denies any factors that worsen or improve her chest pain symptoms. MD Complaint: Chest pain Onset/Timin -: Hour(s) Onset: During exertion Pain Location: Left chest, Right chest Severity scale (1-10): 8 Consistency: Constant Improves With: Nothing Worsens With: Nothing Treatments Prior to Arrival: Aspirin Treatment Prior to Arrival Comment:: 324 mg chewable per EMS - Related Data Home Medications Medication Instructions Recorded Confirmed Last Taken Gabapentin [Neurontin] 800 mg PO TID 02/07/17 02/07/17 02/06/17 Loratadine 10 mg PO DAILY 02/07/17 02/07/17 02/06/17 Potassium Chloride 40 meq PO DAILY 02/07/17 02/07/17 02/06/17 Allergies Allergy/AdvReac Type Severity Reaction Status Date / Time codeine Allergy PT UNSURE Verified 09/20/16 12:27 OF REACTION Travel Screening - Travel/Exposure Within Last 30 Days Have you traveled within the last 30 days?: No - Travel Symptoms Symptom Screening: None Review of Systems Constitutional: Denies: Chills, Fever, Malaise, Night sweats Eyes: Denies: Eye discharge, Eye pain ENT: Denies: Congestion, Ear pain Respiratory: Denies: Cough, Dyspnea Cardiovascular: Reports: Chest pain. Denies: Dyspnea on exertion, Edema Endocrine: Denies: Fatigue, Heat or cold intolerance Gastrointestinal: Denies: Abdominal pain, Nausea, Vomiting Genitourinary: Denies: Incontinence, Retention Musculoskeletal: Denies: Arthralgia, Back pain, Gout, Joint swelling Skin: Denies: Bruising, Change in color Neurological: Denies: Abnormal gait, Confusion, Headache, Seizure Psychiatric: Denies: Anxiety Hematological/Lymphatic: Denies: Anemia, Blood Clots Past Medical History - SOCIAL HISTORY Smoking Status: Current every day smoker Alcohol Use: None Drug Use: None - RESPIRATORY Hx Respiratory Disorders: No - CARDIOVASCULAR Hx Cardio Disorders: Yes Hx Hypertension: Yes - NEURO Hx Neuro Disorders: Yes Hx CVA: Yes (2013) Hx Seizures: Yes Comment:: TBI - GI Hx GI Disorders: Yes Hx Reflux: Yes - Hx Genitourinary Disorders: No - ENDOCRINE Hx Endocrine Disorders: No - MUSCULOSKELETAL Hx Musculoskeletal Disorders: No - PSYCH Hx Psych Problems: Yes Hx Anxiety: Yes Hx Depression: Yes Comment:: Bipolar - HEMATOLOGY/ONCOLOGY Hx Hematology/Oncology Disorders: No Family Medical History Any Significant Family History?: No Physical Exam - General General Appearance: Alert, Oriented x3, Cooperative, No acute distress Limitations: No limitations - Head Head exam: Atraumatic, Normocephalic, Normal inspection Head exam detail: negative: Abrasion, Contusion, Gloria's sign, General tenderness, Hematoma, Laceration - Eye Eye exam: Normal appearance. negative: Conjunctival injection, Periorbital swelling, Periorbital tenderness, Scleral icterus - ENT Ear exam: negative: Auricular hematoma, Auricular trauma Nasal Exam: negative: Active bleeding, Discharge, Dried blood, Foreign body Mouth exam: negative: Drooling, Laceration, Muffled voice, Tongue elevation - Neck Neck exam: Normal inspection. negative: Meningismus, Tenderness - Respiratory Respiratory exam: Normal lung sounds bilaterally. negative: Rales, Respiratory distress, Rhonchi, Stridor - Cardiovascular Cardiovascular Exam: Regular rate, Normal rhythm, Normal heart sounds - GI/Abdominal GI/Abdominal exam: Soft. negative: Rebound, Rigid, Tenderness - Rectal Rectal exam: Deferred - exam: Deferred - Extremities Extremities exam: Normal inspection. negative: Calf tenderness, Pedal edema, Tenderness - Back Back exam: Reports: Normal inspection. Denies: CVA tenderness (R), CVA tenderness (L) - Neurological Neurological exam: Alert, Oriented X3. negative: Motor sensory deficit - Psychiatric Psychiatric exam: Flat affect, Normal mood - Skin Skin exam: Normal color. negative: Abrasion Type of lesion: negative: abrasion Course Vital Signs 02/07/17 06:21 Temperature 98.0 F Pulse Rate 66 Respiratory 14 Rate Blood Pressure 124/46 Pulse Ox 100 - Reevaluation(s) Reevaluation #1: 02/07/17 06:38 EKG: NSR 65 Normal axis, normal intervals No acute ST-T wave changes Patient seen and examined, is PERC negative on examination. Toradol ordered for her chest pain symptoms following ASA administration. Will continue to observe. Reevaluation #2: 02/07/17 06:53 Case was discussed with oncoming provider, will assume care and disposition pending laboratory results. Medical Decision Making - Lab Data Result diagrams: 02/07/17 06:30 02/07/17 06:30 Disposition Clinical Impression: Chest pain Qualifiers: Chest pain type: unspecified Qualified Code(s): R07.9 - Chest pain, unspecified Disposition: Home, Self-Care Condition: (2) Stable Instructions: Chest Pain (ED) Forms: Patient Portal Access Quality - Quality Measures Quality Measures: N/A - Blood Pressure Screening Does Patient Have Any of the Following: No Blood Pressure Classification: Pre-Hypertensive BP Reading Systolic Measurement: 124 Diastolic Measurement: 46 Screening for High Blood Pressure: < Pre-Hypertensive BP, F/U Documented > [ G8950] Pre-Hypertensive Follow-up Interventions: Referral to alternative/primary care provider.
[2017-02-07] MEDS ORDERED: KETOROLAC 30 MG/ML VIAL IVP ONE (06:40)
[2017-02-07 06:49] LABS: BASO % 0.5 % (0-6); EOS % 0.9 % (0-6); GRAN % 57.1 % (47-80); HEMATOCRIT 39.1 % (35.0-47.0); HEMOGLOBIN 12.7 gm/dl (11.6-16.0); LYMPH % 34.7 % (16-45); MEAN CELL VOLUME 89.9 fl (81-97); MEAN CORPUSCULAR HEMOGLOBIN 29.2 pg (27-33); MEAN CORPUSCULAR HGB CONC 32.5 g/dl (32-36); MEAN PLATELET VOLUME 9.7 fl (7.4-10.4); MONO % 6.8 % (0-9); PLATELET COUNT 268 K/uL (130-400); RED BLOOD COUNT 4.35 M/uL (3.80-5.40); RED CELL DISTRIBUTION WIDTH 17.6 % (11.5-14.5); WHITE BLOOD COUNT W/O DIFF 7.9 K/uL (4.2-12.2)
[2017-02-07 07:08] LABS: ALB/GLOB RATIO 1.3 (1.1-1.8); ALBUMIN 3.9 g/dL (4.0-5.0); ALKALINE PHOSPHATASE 87 U/L (35-104); ALT/SGPT 10 U/L (<33); AST/SGOT 16 U/L (10.0-35.0); BLOOD UREA NITROGEN 20 mg/dL (6-20); CREATINE PHOSPHOKINASE 88 U/L (26-192); CREATININE 0.8 mg/dL (0.5-0.9); EST GLOMERULAR FILTRATION RATE > 60 mL/min; GLUCOSE,RANDOM 125 mg/dL (74-109); TOTAL PROTEIN 6.9 g/dL (6.6-8.7)
[2017-02-07 07:10] LABS: BILIRUBIN,TOTAL < 0.20 mg/dL (0.2-1.0)
--- NOTE | 2017-02-07 07:31 | Emergency Department Record ---
History of Present Illness - General Chief Complaint: Chest Pain Stated Complaint: CHEST PRESSURE Time Seen by Provider: 02/07/17 06:51 Source: Patient Mode of Arrival: EMS Limitations: No limitations - History of Present Illness Initial Comments: 46 yo female presents with chest pain this morning She was seen and examined at sign out with Dr Reeder The labs and EKG were reviewed. The troponin is negative. PERC Negative No acute changes on the labs or EKG. No changes from prior on the EKG The patient does not have any history of prior CAD MD Complaint: Chest pain Onset/Timin -: Hour(s) Onset: During exertion Pain Location: Left chest, Right chest Severity scale (1-10): 8 Quality: Sharp Consistency: Constant Improves With: Nothing Worsens With: Nothing Treatments Prior to Arrival: Aspirin Treatment Prior to Arrival Comment:: 324 mg chewable per EMS - Related Data Home Medications Medication Instructions Recorded Confirmed Last Taken Gabapentin [Neurontin] 800 mg PO TID 02/07/17 02/07/17 02/06/17 Loratadine 10 mg PO DAILY 02/07/17 02/07/17 02/06/17 Potassium Chloride 40 meq PO DAILY 02/07/17 02/07/17 02/06/17 Allergies Allergy/AdvReac Type Severity Reaction Status Date / Time codeine Allergy PT UNSURE Verified 09/20/16 12:27 OF REACTION Travel Screening - Travel/Exposure Within Last 30 Days Have you traveled within the last 30 days?: No - Travel Symptoms Symptom Screening: None Review of Systems Constitutional: Denies: Chills, Fever, Malaise, Night sweats Eyes: Denies: Eye discharge, Eye pain ENT: Denies: Congestion, Ear pain Respiratory: Denies: Cough, Dyspnea Cardiovascular: Reports: Chest pain. Denies: Dyspnea on exertion, Edema Endocrine: Denies: Fatigue, Heat or cold intolerance Gastrointestinal: Denies: Abdominal pain, Nausea, Vomiting Genitourinary: Denies: Incontinence, Retention Musculoskeletal: Denies: Arthralgia, Back pain, Gout, Joint swelling Skin: Denies: Bruising, Change in color Neurological: Denies: Abnormal gait, Confusion, Headache, Seizure Psychiatric: Denies: Anxiety Hematological/Lymphatic: Denies: Anemia, Blood Clots Past Medical History - SOCIAL HISTORY Smoking Status: Current every day smoker Alcohol Use: None Drug Use: None - RESPIRATORY Hx Respiratory Disorders: No - CARDIOVASCULAR Hx Cardio Disorders: Yes Hx Hypertension: Yes - NEURO Hx Neuro Disorders: Yes Hx CVA: Yes (2013) Hx Seizures: Yes Comment:: TBI - GI Hx GI Disorders: Yes Hx Reflux: Yes - Hx Genitourinary Disorders: No - ENDOCRINE Hx Endocrine Disorders: No - MUSCULOSKELETAL Hx Musculoskeletal Disorders: No - PSYCH Hx Psych Problems: Yes Hx Anxiety: Yes Hx Depression: Yes Comment:: Bipolar - HEMATOLOGY/ONCOLOGY Hx Hematology/Oncology Disorders: No Family Medical History Any Significant Family History?: No Physical Exam - General General Appearance: Alert, Oriented x3, Cooperative, No acute distress Limitations: No limitations - Head Head exam: Atraumatic - Eye Eye exam: Normal appearance, PERRL Pupils: Normal accommodation - ENT ENT exam: Normal exam Ear exam: Normal external inspection Nasal Exam: Normal inspection Mouth exam: Normal external inspection - Neck Neck exam: Normal inspection - Respiratory Respiratory exam: Normal lung sounds bilaterally. negative: Decreased breath sounds, Respiratory distress, Rhonchi, Stridor, Wheezes - Cardiovascular Cardiovascular Exam: Regular rate, Normal rhythm, Normal heart sounds Peripheral Pulses: 2+: Radial (R), Radial (L) - GI/Abdominal GI/Abdominal exam: Soft - Rectal Rectal exam: Deferred - exam: Deferred - Extremities Extremities exam: Normal inspection. negative: Calf tenderness, Pedal edema, Tenderness - Back Back exam: Reports: Normal inspection, Full ROM. Denies: Muscle spasm, Rash noted, Tenderness - Neurological Neurological exam: Alert, Normal gait, Oriented X3, Reflexes normal - Psychiatric Psychiatric exam: Normal affect, Normal mood - Skin Skin exam: Dry, Intact, Normal color, Warm Course Vital Signs 02/07/17 02/07/17 02/07/17 06:21 06:51 07:06 Temperature 98.0 F Pulse Rate 66 Pulse Rate [ 66 59 L Manager Integration ] Respiratory 14 16 16 Rate Blood Pressure 124/46 Blood Pressure 114/54 [Right Arm] Pulse Ox 100 100 99 - Reevaluation(s) Reevaluation #1: The patient is resting pain free The initial labs, troponin, EKG are negative The pain was atypical with movement onset while smoking A second set or cardiac enzymes is planned for 10:30am 02/07/17 07:10 02/07/17 08:49 The patient is alert and comfortable No complaints. No chest pain. She is hungry and expresses a wish for discharge at this time. 02/07/17 09:46 The patient still expresses a wish for discharge She is refusing additional treatment or tests. Her pain is still gone I explained that I recommend a second set of enzymes. She requested to sign out AMA. I explained the AMA process. She understands the concerns for a second set of cardiac enzymes for her pain although it is atypical. She agrees with the AMA process. She was informed she may return at any time for re- evaluation. Medical Decision Making - Lab Data Result diagrams: 02/07/17 06:30 02/07/17 06:30 Lab Results 02/07/17 02/07/17 Range/Units 06:30 06:30 WBC 7.9 (4.2-12.2) K/uL RBC 4.35 (3.80-5.40) M/uL Hgb 12.7 (11.6-16.0) gm/dl Hct 39.1 (35.0-47.0) % MCV 89.9 (81-97) fl MCH 29.2 (27-33) pg MCHC 32.5 (32-36) g/dl RDW 17.6 H (11.5-14.5) % Plt Count 268 (130-400) K/uL MPV 9.7 (7.4-10.4) fl Gran % 57.1 (47-80) % Lymphocytes % 34.7 (16-45) % Monocytes % 6.8 (0-9) % Eosinophils % 0.9 (0-6) % Basophils % 0.5 (0-6) % Sodium 138 (136-145) mmol/L Potassium 4.7 H (3.4-4.5) mmol/L Chloride 101 (98-107) mmol/L Carbon Dioxide 26.0 (22-29) mmol/L Anion Gap 11.0 (7-16) BUN 20 (6-20) mg/dL Creatinine 0.8 (0.5-0.9) mg/dL Estimated GFR > 60 mL/min Random Glucose 125 H (74-109) mg/dL Calcium 8.7 (8.6-10.0) mg/dL Total Bilirubin < 0.20 L (0.2-1.0) mg/dL AST 16 (10.0-35.0) U/L ALT 10 (<33) U/L Alkaline Phosphatase 87 (35-104) U/L Creatine Kinase 88 (26-192) U/L CK-MB (CK-2) 3.0 (<3.77) ng/mL Troponin T < 0.010 (0-0.010) ng/mL Total Protein 6.9 (6.6-8.7) g/dL Albumin 3.9 L (4.0-5.0) g/dL Globulin 3.0 (1.4-4.8) gm/dL Albumin/Globulin Ratio 1.3 (1.1-1.8) Disposition Disposition: Discharge Clinical Impression: Left against medical advice Chest pain Qualifiers: Chest pain type: unspecified Qualified Code(s): R07.9 - Chest pain, unspecified Disposition: Against Medical Advice Condition: (1) Good Instructions: Chest Pain (ED), Against Medical Advice (ED) Additional Instructions: Return if you have pain, short of breath or any concerns You are signing out AMA at this time Call your doctor for close follow up of this ER visit Forms: Patient Portal Access Time of Disposition: 09:49 Quality - Quality Measures Quality Measures: N/A - Blood Pressure Screening Does Patient Have Any of the Following: No Blood Pressure Classification: Pre-Hypertensive BP Reading Systolic Measurement: 124 Diastolic Measurement: 46 Screening for High Blood Pressure: < Pre-Hypertensive BP, F/U Documented > [ G8950] Pre-Hypertensive Follow-up Interventions: Referral to alternative/primary care provider.
--- NOTE | 2017-02-08 08:11 | RADIOLOGY REPORT ---
DATE: 02/07/2017 at 6:54. EXAM: TWO-VIEW, CHEST. HISTORY: Acute upper chest pain while smoking. Chest pressure. COMPARISON: None. TECHNIQUE: Two views of the chest were obtained. FINDINGS: The lungs are clear. No pneumothorax. The cardiac silhouette, diaphragm, and osseous structures are unremarkable. IMPRESSION: NO ACUTE INTRATHORACIC PROCESS. JOB NUMBER: [id number] MTDD
== END 2017-02-07 10:27 | disposition left against medical advice (07) ==
LOC: ER 06:17
DX: R07.89 Other chest pain (principal); I10 Essential (primary) hypertension; F17.210 Nicotine dependence, cigarettes, uncomplicated; Z86.73 Personal history of transient ischemic attack (TIA), and cerebral infarction without residual deficits; Z87.820 Personal history of traumatic brain injury
CPT/HCPCS: 71020; 80053; 82550; 82553; 84484; 85025; 93005; 93010; 96374; 99284; J1885

== ENCOUNTER 2018-05-30 15:48 | Emergency (ER) | payer MEDICAID ==
--- NOTE | 2018-05-30 16:05 | Emergency Department Record ---
History of Present Illness - General Chief complaint: Pain Stated complaint: LT FOOT PAIN Time Seen by Provider: 05/30/18 15:54 Source: Patient Mode of Arrival: EMS Limitations: No limitations - History of Present Illness Initial comments: The patient is here due to worsening L leg pain for 3-4 days. The patient has had a chronic problem with L foot pain and numbness and has a known blood flow issue. 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 Per the patient her PCP is working with her sister in [place] who is her guardian to get the OK for a L leg stent. Now for the last 3-4 days the L leg and foot have become more painful and the L toes purple. She denies any CP, SOB, or RORO but she does have a chronic cough. The pain in the foot is now so severe she is unable to walk on it. The patient denies that she takes any blood thinners and she has none on her list from her residential. MD Complaint: Extremity pain Onset/Timin -: Days(s) Location: Left Improves with: Nothing Worsens with: Nothing - Related Data Home Medications Medication Instructions Recorded Confirmed Last Taken Alogliptin Benzoate [Alogliptin] 25 mg PO DAILY 05/30/18 05/30/18 Unknown Beclomethasone Dipropionate [Qvar 8.7 gm IH BID 05/30/18 05/30/18 Unknown 80Mcg/100 Actuat Inhaler] Cholecalciferol (Vitamin D3) 2,000 unit PO DAILY 05/30/18 05/30/18 Unknown [Vitamin D3] Furosemide [Lasix] 40 mg PO DAILY 05/30/18 05/30/18 Unknown Glyburide 5 mg PO BIDAC 05/30/18 05/30/18 Unknown Metoprolol Succinate 25 mg PO DAILY 05/30/18 05/30/18 Unknown Multivitamin with Iron [Tab-A-Phan 1 each PO DAILY 05/30/18 05/30/18 Unknown with Iron] Umeclidinium [place] [Incruse 62.5 mcg IH DAILY 05/30/18 05/30/18 Unknown Ellipta] Venlafaxine HCl [Venlafaxine HCl 2 tab PO DAILY 05/30/18 05/30/18 Unknown ER] Allergies Allergy/AdvReac Type Severity Reaction Status Date / Time codeine Allergy PT UNSURE Verified 05/30/18 17:00 OF REACTION Travel Screening - Travel/Exposure Within Last 30 Days Have you traveled within the last 30 days?: No - Travel/Exposure Within Last Year Have you traveled outside the [place] in the last year?: No - Additonal Travel Details Have you been exposed to anyone with a communicable illness?: No - Travel Symptoms Symptom Screening: None Review of Systems Constitutional: Denies: Chills, Fever Eyes: Denies: Eye discharge ENT: Denies: Congestion, Throat pain Respiratory: Denies: Dyspnea Cardiovascular: Denies: Arrhythmia Endocrine: Denies: Fatigue Gastrointestinal: Denies: Abdominal pain Genitourinary: Denies: Dysuria Musculoskeletal: Denies: Arthralgia Skin: Denies: Bruising Past Medical History - SOCIAL HISTORY Smoking Status: Current every day smoker Alcohol Use: None Drug Use: None - RESPIRATORY Hx Respiratory Disorders: Yes Hx COPD: Yes - CARDIOVASCULAR Hx Cardio Disorders: Yes Hx Hypertension: Yes - NEURO Hx Neuro Disorders: Yes Hx CVA: Yes (2013) Hx Seizures: Yes Comment:: TBI - GI Hx GI Disorders: Yes Hx Reflux: Yes - Hx Genitourinary Disorders: No - ENDOCRINE Hx Endocrine Disorders: No - MUSCULOSKELETAL Hx Musculoskeletal Disorders: No - PSYCH Hx Psych Problems: Yes Hx Anxiety: Yes Hx Depression: Yes Comment:: Bipolar - HEMATOLOGY/ONCOLOGY Hx Hematology/Oncology Disorders: No Family Medical History Any Significant Family History?: No Physical Exam - General General Appearance: Alert, Oriented x3, Cooperative, No acute distress - Head Head exam: Atraumatic, Normocephalic - Eye Eye exam: Normal appearance, PERRL - ENT Throat exam: Normal inspection. negative: Tonsillar erythema, Tonsillar exudate - Neck Neck exam: Normal inspection, Full ROM. negative: Tenderness - Respiratory Respiratory exam: Normal lung sounds bilaterally. negative: Respiratory distress - Cardiovascular Cardiovascular Exam: Regular rate, Normal rhythm, Normal heart sounds - GI/Abdominal GI/Abdominal exam: Soft, Normal bowel sounds. negative: Tenderness - Extremities Extremities exam: Pedal edema (Trace L leg.), Tenderness (There is significant tenderness to palpation to the L foot. The patient states she is unable to flex or extend the L foot.). negative: Normal inspection (The L big toe is purple and the 2nd - 5th toes are mildly purple. The L foot is very cool compared to the R and there are no Doppler signals in the L foot and no palpable pulses.), Full ROM - Neurological Neurological exam: Alert. negative: Motor sensory deficit Course Vital Signs 05/30/18 15:52 Temperature 98.9 F Pulse Rate 85 Respiratory 16 Rate Blood Pressure 118/69 Pulse Ox 96 - Reevaluation(s) Reevaluation #1: I did discuss the case with Dr. Avila in the ER at [facility] and did discuss the situation. He does accept the patient in an ER to ER transfer. I then did discuss the case with Dr. Doshi who is the Vascular surgeon at [facility] and he does accept the patient in consultation. 05/30/18 17:19 Reevaluation #2: I did discuss the issues with Dr. Doshi relating to no IV access and he would like the patient to get a Lovenox shot and transfer to [facility]. I also did inform Dr. Avila about this and he also agreed. The patient is refusing any more IV attempts by us. 05/30/18 17:28 Medical Decision Making - Data Complexity MDM Data: X-Ray Ordered and/or Reviewed - Lab Data Result diagrams: 05/30/18 16:03 05/30/18 16:03 - Radiology Data Radiology results: Report reviewed (L leg Arterial Doppler: Significant decreased flow below the L Common Fem artery.) Disposition Disposition: Transfer Clinical Impression: Ischemic leg Disposition: Acute Care Hospital Transfer Transfer To: [facility] Reason For Transfer: Vascular surgery Accepting Physician: Austin Time Discussed w/Accepting Physician: 17:34 Condition: (2) Stable Forms: Patient Portal Access Time of Disposition: 17:34 Quality - Quality Measures Quality Measures: N/A - Blood Pressure Screening View Details: Yes Does Patient Have Any of the Following: No Blood Pressure Classification: Normal BP Reading Systolic Measurement: 118 Diastolic Measurement: 69 Screening for High Blood Pressure: < Normal BP, F/U Not Required > [G8783]
[2018-05-30] MEDS ORDERED: ENOXAPARIN 100 MG/ML SYR SQ ONE (17:25)
== END 2018-05-30 17:54 | disposition short-term general hospital (02) ==
LOC: ER 15:48
DX: M62.262 Nontraumatic ischemic infarction of muscle, left lower leg (principal); M79.672 Pain in left foot; I10 Essential (primary) hypertension; F17.210 Nicotine dependence, cigarettes, uncomplicated; Z87.820 Personal history of traumatic brain injury
CPT/HCPCS: 96372; 99285; J1650